=== PATIENT | male | born 1985 | race Caucasian/White ===

== ENCOUNTER 2022-10-25 13:10 | Emergency (ER) | payer OTHER ==
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
[2022-10-25 13:27] VITALS: BP 120/78; PULSE 71; RESP 18; TEMP 97.3
[2022-10-25 13:40] VITALS: O2SAT 98
--- NOTE | 2022-10-27 16:18 | XRAY ---
CLINICAL HISTORY:Injury. COMPARISON:None. TECHNIQUES:X-ray of right shoulder-AP [internal rotation] and Y views. FINDINGS: Normal right glenohumeral joint with respect to articulating surface and joint space. Normal acromiclavicular joint. No acute fracture is identified. No sclerotic or lytic bony lesions. Soft tissue densities overlying appear unremarkable. Visualized right lung field appears clear. No pneumothorax or bony rib injury was identified. IMPRESSION: No acute fracture or dislocation was seen. DISCLAIMER: A subtle bone abnormality or fracture may not be readily apparent on x-rays, thus clinical correlation and further imaging including follow-up CT, MRI, or follow-up x-rays are advised as needed. Electronically Signed by: Kenneth Edmondson MD. (10/27/2022 15:13:14 CMA OR LPN)
== END 2022-10-25 14:28 | disposition home or self-care (01) ==
LOC: ED 13:10
DX: G89.29 Other chronic pain (principal); M25.511 Pain in right shoulder; Z79.52 Long term (current) use of systemic steroids
CPT/HCPCS: 73030; 99282